=== PATIENT | female | born 1950 | race Asian ===

== ENCOUNTER → 2020-07-08 18:20 | Outpatient (ROUT) | payer MEDICARE, OTHER, SELFPAY ==
[2020-07-08 19:22] LABS: Add Manual Diff / Slide Review NO; Basophils Absolute Auto 0 /uL (0-100); Basophils Percent Auto 0.5 % (0-2); Eosinophils Absolute Auto 100 /uL (0-450); Eosinophils Percent Auto 1.4 % (2-4); Hematocrit 39.7 % (36-46); Hemoglobin 12.4 g/dL (12.0-16.0); Lymphocytes Absolute Auto 1700 /uL (1100-4500); Lymphocytes Percent Auto 23.7 % (25-40); Mean Corpuscular HGB Conc 31.3 % (30-36); Mean Corpuscular Hemoglobin 22.6 PG (26-34); Mean Corpuscular Volume 72.1 fL (80-100); Monocytes Absolute Auto 500 /uL (0-900); Monocytes Percent Auto 6.6 % (3-14); Neutrophils Absolute Auto 4900 /uL (1500-7000); Neutrophils Percent Auto 67.8 % (50-75); Platelet Count 241 X10^3/uL (150-400); Red Cell Distribution Width 15.3 % (11.6-14.8); White Blood Cell Count 7.2 X10^3/uL (4.5-11.0)
[2020-07-08 19:32] LABS: Alanine Aminotransferase 32 IU/L (<35); Albumin 4.6 g/dL (3.5-5.0); Albumin Globulin Ratio 1.2 (1.0-2.8); Alkaline Phosphatase 76 U/L (38-126); Aspartate Aminotransferase 34 IU/L (14-36); BUN Creatinine Ratio 27.8 (6-22); Bilirubin Total 0.7 mg/dL (0.2-1.3); Blood Urea Nitrogen 15 mg/dL (7-17); Calcium 9.8 mg/dL (8.4-10.2); Carbon Dioxide 29 mmol/L (22-32); Chloride 102 mmol/L (98-107); Cholesterol 212 mg/dL (140-199); Estimated Glomerular Filt Rate > 60.0 mL/min (>60); Globulin 3.8 g/dL (1.7-4.1); Glucose 119 mg/dL (80-110); HDL Cholesterol 50 mg/dL (40-60); HEMOLYSIS < 15 (0-50); LDL Cholesterol Calculated 88 mg/dL (<100); Potassium 4.1 mmol/L (3.4-5.1); Sodium 140 mmol/L (137-145); Total Protein 8.4 g/dL (6.3-8.2); Triglycerides 368 mg/dL (35-150)
[2020-07-08 19:39] LABS: Hemoglobin A1C% w Est Avg Glu 6.8 % (4.0-6.0)
[2020-07-08 20:00] LABS: TSH w/ Reflex to FT4 1.04 uIU/mL (0.47-4.68)
== END ==
PROVIDERS: Visit Provider Internal Medicine
DX: E78.2 Mixed hyperlipidemia (principal); D56.3 Thalassemia minor; E11.9 Type 2 diabetes mellitus without complications
CPT/HCPCS: 80053; 80061; 83036; 84443; 85025

== ENCOUNTER 2024-11-29 16:51 | Emergency (ER) | payer MEDICARE, OTHER, SELFPAY ==
[2024-11-29 16:53] VITALS: BP 147/67; PULSE 100; RESP 20; TEMP 36.8; O2SAT 98; BMI 28.3
--- NOTE | 2024-11-29 17:00 | DI.RAD.S_ITS ---
PROCEDURE: XR WRIST RT MIN 3V INDICATIONS: glf TECHNIQUE: 3 views of the wrist were acquired. COMPARISON: None. FINDINGS: Bones: Distal radius fracture. Mild palmar angulation and impaction. Ossicle adjacent to the ulnar styloid. Favor accessory ossicle over ulnar styloid fracture. No dislocations. No suspicious bony lesions. Soft tissues: No suspicious soft tissue calcifications. IMPRESSION: Distal radius fracture. Dictated by: Italo Inman M.D. on 11/29/2024 at 17:40 Approved by: Italo Inman M.D. on 11/29/2024 at 17:42
--- NOTE | 2024-11-29 17:07 | ED_ITS ---
<Statement entered by Jerzy Gonzalez DO - 11/30/24 00:14> Dr. Gonzalez: I was immediately available in the department for consultation. I did not actually see the patient. HPI - Fall General Chief Complaint: Fall Stated Complaint: Rt. wrist injury Time Seen by Provider: 11/29/24 17:06 Source: patient and family Mode of arrival: Ambulatory History of Present Illness HPI Narrative: 74-year-old female presents with right wrist pain. [facility] her footing and fell forward with an outstretched hand. She denied any precipitating events, no lightheadedness or dizziness. She did not strike her head. She is right-handed dominant. She presents with a Kamari splint applied and Coban tape, she was transported by ambulance to our emergency department.. She is denying any numbness tingling or loss of sensation in her distal phalanges. No treatment tried other than the splint. She is denying any prior wrist injuries. She is denying any other complaints. All other systems are reviewed and are negative. Review of Systems Review of Systems Narrative: All other systems reviewed and are negative. Patient History Social History Smoking Status: Never smoker Smoking Status: Never smoker Exam Initial Vital Signs Initial Vital Signs: Vital Signs Temperature 98.2 F 11/29/24 16:53 Pulse Rate 100 H 11/29/24 16:53 Respiratory Rate 20 11/29/24 16:53 Blood Pressure 147/67 H 11/29/24 16:53 Pulse Oximetry 98 11/29/24 16:53 Oxygen Delivery Method Room Air 11/29/24 16:53 Vital signs reviewed and are normal except for slight elevation in her systolic. Const General: cooperative, healthy appearing, comfortable and well developed Eyes General: Yes appearance normal, both eyes and all related structures Neck Neck: normal visual inspection, full ROM and trachea midline Chest Chest: normal inspection of the chest Resp Effort & Inspection: normal respiratory effort Auscultation: clear to auscultation bilaterally, no rales, no rhonchi and no wheezes Cardio Rate: regular rate Rhythm: regular rhythm Back/Spine/Pelvis Back: normal to inspection and No back tenderness Neuro Other: Distal neurovascular of her right phalanges is grossly intact. Normal capillary refill, normal sensory, 2 point discrimination intact. Extrem General: capillary refill normal Other: Found to be splinted with a Kamari splint. This is taken down, there is swelling about the wrist focal tenderness about the distal radius. Her ring was removed with ease, she is able to demonstrate range of motion with her distal phalanges, she has pain with any wrist ROM. No issues identified with the forearm, elbow or upper extremity otherwise. Skin is intact, mild soft tissue swelling about the wrist, no discoloration. Procedures Orthopedic Splinting/Casting Injury #1: Time of procedure: 19:00 Side: right Upper Extremity Injury Location: wrist Upper Extremity Immobilizer: sugar tong splint Post splinting neuro exam: intact Post splinting vascular exam: intact Placed by: Provider (assisted by RN) Additional Comments: Sling applied following sugar-tong application, no rough edges identified, significant blunting padding applied around the distal radius. Neutral position to prevent further palmar angulation. Well-tolerated. Course Orders Ordered: ED Orders 11/29/24 17:00 XR wrist RT min 3V Stat Vital Signs Vital signs: Vital Signs - 8 hr 11/29/24 16:53 Temperature 98.2 F Pulse Rate 100 H Respiratory Rate 20 Blood Pressure 147/67 H Pulse Oximetry 98 Oxygen Delivery Method Room Air Vital signs reviewed and are normal. Mild elevation in her systolic. MDM - Fall Imaging Data Extremity x-ray #1: My Impression: Distal radius fracture with impaction and palmar angulation. Deferred to ra diologist's findings below. This is a closed fracture. Radiologist's Impression: PROCEDURE: XR WRIST RT MIN 3V INDICATIONS: glf TECHNIQUE: 3 views of the wrist were acquired. COMPARISON: None. FINDINGS: Bones: Distal radius fracture. Mild palmar angulation and impaction. Ossicle adjacent to the ulnar styloid. Favor accessory ossicle over ulnar styloid fracture. No dislocations. No suspicious bony lesions. Soft tissues: No suspicious soft tissue calcifications. IMPRESSION: Distal radius fracture. Dictated by: Italo Inman M.D. on 11/29/2024 at 17:40 Approved by: Italo Inman M.D. on 11/29/2024 at 17:42 [facility] Narrative Medical decision making narrative: Pleasant 74-year-old female with a distal radius fracture that is closed. I contacted Dr. German who graciously assisted and agrees to accommodate her tomor row at the [facility]. She advise this will need repair in 1 week's time as it was an unstable fracture. This was explained to the patient, she was splinted with a Orthoglass sugar-tong with significant padding applied as well as a sling. She is comfortable, not really complaining of any pain at this time. Instructions were given in detail and of course to return to the emergency department if she is any issues with the sling or experiences any numbness or tingling or increased pain. Avoid re-injury, keep her activity light, elevate as much as possible. Keep the splint dry. Discharge Plan Departure Patient Disposition: Home Clinical Impression: Distal radius fracture, right Qualifiers: Encounter type: initial encounter Fracture type: closed Fracture morphology: other fracture Qualified Code(s): S52.591A - Other fractures of lower end of right radius, initial encounter for closed fracture Instructions: How to Prevent Falls, DI for Distal Radius Fracture Activity Restrictions/Additional Instructions: Please call the orthopedic office in the morning they open at 8a, Dr. German advise that they would accommodate to tomorrow November 30, 2024 at the [facility]. Wear the splint at all times do not get it wet, keep it elevated, you may wear the sling at all times. Tylenol as needed for pain, you can ice directly over the splint. Do not hesitate to return to the emergency department if you have any issues with the splint, do not wear any jewelry on this hand. Per orthopedics this is an unstable fracture and it will likely need repair in a bout 1 week. Referrals: Miscellaneous,[facility] [Primary Care Provider] - Guera German MD [Physician] - (Consulted via ED. Plan to call 11/30/24 and fit it [facility], plan for repair in 1 wk per our chat (thank you!!)) Stand Alone Forms: Patient Portal/API/Survey
[2024-11-29 19:26] VITALS: BP 110/60; PULSE 90; RESP 19; O2SAT 99
== END 2024-11-29 19:24 | disposition home or self-care (01) ==
PROVIDERS: Emergency Provider Physician Assistant Medical
DX: S52.501A Unspecified fracture of the lower end of right radius, initial encounter for closed fracture (principal); W01.0XXA Fall on same level from slipping, tripping and stumbling without subsequent striking against object, initial encounter; Y92.59 Other trade areas as the place of occurrence of the external cause
CPT/HCPCS: 29125; 73110; 99282; 99283